=== PATIENT | male | born 1975 | race Caucasian/White ===

== ENCOUNTER 2017-05-25 12:05 | Emergency (ER) | payer SELFPAY ==
[~2017-05-25] VITALS: Ht 188 cm; Wt 130.0 kg
[2017-05-25] MEDS ORDERED: SODIUM CHLORIDE 0.9% 1,000 ML IV ONE ×2 (13:06→14:16)
[2017-05-25] MEDS ORDERED: ACETAMINOPHEN 325MG TABLET PO ONE (13:15)
[2017-05-25] MEDS ORDERED: AMOXICILLIN/POTASSIUM CLAVULANATE 875/125MG TAB PO ONE (13:15)
[2017-05-25] MEDS ORDERED: KETOROLAC 30MG/ML VIAL IV ONE (13:15)
[2017-05-25] MEDS ORDERED: HYDROCHLOROTHIAZIDE 25MG TABLET PO ONE (13:15)
[2017-05-25] MEDS ORDERED: DEXAMETHASONE 10MG/ML 1ML VIAL IV ONE (13:15)
[2017-05-25 14:30] VITALS: BP 166/111
[2017-05-25 14:54] LABS: BASOPHILS % 0.7 % (0.0-2.0); EOSINOPHILS % 1.9 % (0.0-5.0); HEMATOCRIT. 42.2 % (42.0-52.0); HEMOGLOBIN. 13.9 g/dL (14.0-18.0); LYMPHOCYTES % 10.1 % (20.0-50.0); MEAN CORPUSCULAR HEMOGLOBIN 27.4 pg (28.0-32.0); MEAN CORPUSCULAR VOLUME 82.9 fL (80.0-94.0); MEAN PLATELET VOLUME 9.2 fl (7.4-10.4); MONOCYTES % 5.1 % (2.0-8.0); NEUTROPHILS % 82.2 % (40.0-76.0); PLATELET 231 x1000/uL (130-400); RED BLOOD CELL COUNT 5.09 mill/uL (4.7-6.1); RED CELL DISTRIBUTION WIDTH 14.9 % (11.6-14.6)
[2017-05-25 15:00] LABS: CHLORIDE 105 mEq/L (98-107)
[2017-05-25 15:07] LABS: CARBON DIOXIDE 26 mEq/L (21-32)
== END 2017-05-25 15:13 | disposition home or self-care (01) ==
LOC: ER 14:41
DX: J02.0 Streptococcal pharyngitis (principal); Z87.828 Personal history of other (healed) physical injury and trauma
CPT/HCPCS: 36415; 80053; 85025; 96374; 96375; 99284; J1100; J1885; J7030; Z7610